=== PATIENT | female | born 1990 | race Caucasian/White ===

== ENCOUNTER 2016-07-18 18:41 | Emergency (ER) | payer OTHER ==
[~2016-07-18 18:41] MED LIST: BIRTH CONTROL PILL; PROZ10CA
[2016-07-18 20:12] LABS: BASO # 0.1 K/mm3 (0.0-0.2); BASO % 1.1 % (0.0-1.0); EOS # 0.8 K/mm3 (0.0-0.50); EOS % 8.6 % (0.0-3.0); LARGE UNSTAINED CELL # 0.2 K/mm3 (0.0-0.4); LARGE UNSTAINED CELL % 1.8 % (0.0-4.0); LYMPH # 3.8 K/mm3 (1.5-6.5); MEAN CORPUSCULAR HEMOGLOBIN 31.1 pg (27.0-33.0); MEAN CORPUSCULAR HGB CONC 34.8 g/dl (32.0-36.5); MEAN CORPUSCULAR VOLUME 89.2 fl (80.0-96.0); MONO # 0.5 K/mm3 (0.0-0.8); MONO % 5.3 % (0.0-5.0); NEUTROPHILS # 3.6 K/mm3 (1.8-7.7); NEUTROPHILS % 41.2 % (36.0-66.0); PLATELET COUNT, AUTOMATED 262 k/mm3 (150-450); WHITE BLOOD COUNT 8.8 K/mm3 (4.0-10.0)
[2016-07-18 20:28] LABS: ERYTHROCYTE SEDIMENTATION RATE 13 mm/hr (0-20)
[2016-07-18 21:04] LABS: ANION GAP 8 MEQ/L (8-16); BLOOD UREA NITROGEN 13 MG/DL (7-18); CALCIUM LEVEL 9.1 MG/DL (8.5-10.1); CARBON DIOXIDE LEVEL 27 MEQ/L (21-32); CHLORIDE LEVEL 109 MEQ/L (98-107); CREATININE FOR GFR 0.86 MG/DL (0.55-1.02); GLOMERULAR FILTRATION RATE > 60.0 (>60); GLUCOSE, FASTING 92 MG/DL (70-105); POTASSIUM SERUM 4.1 MEQ/L (3.5-5.1); SODIUM LEVEL 144 MEQ/L (136-145); T UPTAKE 34 % (30-39)
[2016-07-18] MEDS ORDERED: ISOVUE-370 76% 100ML VIAL (Q9967) As Ordered ONE (21:35)
--- NOTE | 2016-07-18 22:30 | REPUSA ---
CT of the soft tissues of the neck with contrast Clinical history: lung in the throat. Technique: Multiple axial CT images were obtained from the base of the skull to the upper thorax afte r administration of non-ionic intravenous contrast. Coronal and sagittal reconstructions were also ob tained. Findings: The visualized paranasal sinuses are clear. The pterygopalatine fossa, pterygoid plates and pterygoid muscles are unremarkable. The mucosa of the naso- and oropharynx appears unremarkable. The hypopharynx and larynx show no pathology. The visualized osseous structures are intact. The airway i s patent. No focal mass is appreciated. There is no evidence of lymphadenopathy. The thyroid gland ap pears unremarkable. The superficial soft tissues are unremarkable. Impression: Unremarkable CT examination of the soft tissues of the neck.
--- NOTE | 2016-07-18 23:17 | EDDOCDS ---
Nurse's Notes [facility] Name: Chantelle Bellamy Age: 25 yrs Sex: Female : 1990 Arrival Date: 07/18/2016 Time: 18:41 Bed I2 / M2 Private MD: NO PRIMARY PHYSICIAN, . Diagnosis: Pain in throat Presentation: 07/18 18:47 Presenting complaint: Patient states: feeling of pressure in throat worse hen she kpj swallows swelling present anterior aspect of throat since yesterday. 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 Adult Sepsis Screening: The patient does not have new or worsening altered mentation. Patient's respiratory rate is less than 22. Systolic blood pressure is greater than 100. Patient has a qSOFA score of 0- Negative Sepsis Screen. Suicide/Homicide risk assessment- the patient denies having any suicidal and/or homicidal ideations and does not present with any other emotional, behavioral or mental health complaints. Status: reserve status. Transition of care: patient was not received from another setting of care. 18:47 Acuity: SHI Level 3 [facility] 18:47 Method Of Arrival: Walkin/Carried/Asstd [facility] Triage Assessment: 18:53 General: Appears well nourished, well groomed, Behavior is appropriate for age, kpj pleasant. Pain: Location: throat Pain currently is 5 out of 10 on a pain scale. Pt Declines HIV testing. Neurological: Level of Consciousness is awake, alert, Oriented to person, place, time. EENT: Reports difficulty swallowing pain when swallowing Pain is 5 out of 10 on a pain scale. swelling anterior aspect of throat. Respiratory: Airway is patent Respiratory effort is even, unlabored, Respiratory pattern is regular, symmetrical. Derm: Skin is pink, warm & dry. TECHNOLOGIST DEVELOPMENT: 18:53 LMP 07/07/2016 [facility] Historical: - Allergies: No known drug Allergies; - Home Meds: 1. bcp patch patch change every week x 3 weeks then off x 1 week - PMHx: Kidney stones; - PSHx: kidney stone removal; - Social history: Smoking status: Patient uses tobacco products, light tobacco smoker. No barriers to communication noted, The patient speaks fluent Tajik. - Family history: Not pertinent. - : The pt / caregiver states he / she is not on anticoagulants. Home medication list is obtained from the patient. - Exposure Risk Screening:: None identified. Screenin:03 Screening information is obtained from the patient. Fall risk: No risks identified. ld5 Assistance ADL's: requires no assistance with activities of daily living. Abuse/DV Screen: The patient / caregiver reports he/she is: not in a situation that causes fear, pain or injury. Nutritional screening: No deficits noted. Advance Directives: Currently, there is no health care proxy. home support is adequate. Assessment: 20:03 General: Appears in no apparent distress, Behavior is cooperative, pleasant. Pain: ld5 Location: throat Aggravated by laying flat, swallowing. Neurological: Level of Consciousness is awake, alert. EENT: Reports pain when swallowing. Respiratory: Airway is patent Respiratory effort is even, unlabored. GI: Abdomen is non- distended. Derm: Skin is intact, Skin is dry, Skin is normal. 21:07 General: Pt sitting in bed. Awaiting CT scan. Will continue to monitor. ld5 21:43 General: Pt returned from CT. Tolerated well. No apparent distress. Will continue to ld5 monitor. 23:01 General: Pt declining strep. "I just want to go home." Provider made aware. ld5 23:10 Reassessment: Patient appears in no apparent distress at this time. Patient denies pain rw1 at this time. Vital Signs: 18:45 BP 146 / 80; Pulse 74; Resp 17; Temp 97.5(T); Pulse Ox 100% on R/A; Weight 67.13 kg lr2 (R); Height 5 ft. 9 in. (175.26 cm) (R); 23:10 BP 132 / 72; Pulse 70; Resp 16; Temp 97.6(O); Pulse Ox 98% on R/A; Pain 0/10; rw1 18:45 Body Mass Index 21.86 (67.13 kg, 175.26 cm) lr2 Vitals: 18:45 Log In Time: July 18, 2016 at 18:41. lr2 ED Course: 18:43 Patient visited by Georgina Keane. lr2 18:43 Patient moved to Waiting lr2 18:44 NO PRIMARY PHYSICIAN, . is Private Physician. lr2 18:44 Patient moved to Pre RCE lr2 18:51 Triage Initiated kpj 19:16 Patient moved to Triage 3 cz 19:19 Gor[facility]bolledo PA-C [facility]. dk1 19:19 Charlie White DO is Attending Physician. dk1 19:34 Patient visited by Goran Rebolledo PA-C. dk1 19:39 Patient name changed from Chantelle\\S\\M\\S\\Bellamy\\S\\ to Chantelle\\S\\Ashley\\S\\Bellamy. EDMS 19:40 [place] Payment Agreement was scanned into [employer] and attached to record. gb 19:43 Patient moved to I2 / M2 cz 20:03 The patient / caregiver is instructed regarding the plan of care and ED course. ld5 Accompanied by Family Member, Patient has correct armband on for positive identification. Placed in gown. Bed in low position. Call light in reach. 20:03 CRP Sent. ld5 20:03 ESR Sent. ld5 20:03 Thyroid Profile Sent. ld5 20:03 BMP Sent. ld5 20:03 CBC with Diff Sent. ld5 20:03 Inserted saline lock: 20 gauge in right antecubital area and blood collected. The ld5 patient tolerated the procedure well. Labs drawn. (by ED staff). Sent per order to lab. 20:05 Patient visited by Georgina Patten,ALAN. ld5 21:07 Patient visited by Georgina Patten,ALAN. ld5 21:44 Patient visited by Georgina Patten,ALAN. ld5 22:59 CT Neck With Contrast Returned. EDMS 23:01 Patient visited by Naif Augustin PCA. kb5 23:02 Patient visited by Georgina Patten,ALAN. ld5 23:04 Tomas Bass is Referral Physician. dk1 23:10 Discontinued IV lock intact, bleeding controlled, pressure dressing applied, No rw1 redness/swelling at site. No procedures done that require assistance. Administered Medications: 20:03 Drug: NS 0.9% 1000 ml [sodium chloride 0.9 % intravenous solution] Route: IV; Rate: ld5 bolus; Site: right antecubital; 21:44 Follow up: IV Status: Completed infusion; IV Intake: 1000ml ld5 23:15 Follow up: IV Status: Completed infusion rw1 Intake: :44 IV: 1000.00ml; Total: 1000.00ml. ld5 Order Results: Lab Order: CBC with Diff; SPEC'M 07/18/16 20:01 Test: WHITE BLOOD COUNT; Value: 8.8; Range: 4.0-10.0; Units: K/mm3; Status: F Test: RED BLOOD COUNT; Value: 4.36; Range: 4.00-5.40; Units: M/mm3; Status: F Test: HEMOGLOBIN; Value: 13.5; Range: 12.0-16.0; Units: g/dl; Status: F Test: HEMATOCRIT; Value: 38.9; Range: 36.0-47.0; Units: %; Status: F Test: MEAN CORPUSCULAR VOLUME; Value: 89.2; Range: 80.0-96.0; Units: fl; Status: F Test: MEAN CORPUSCULAR HEMOGLOBIN; Value: 31.1; Range: 27.0-33.0; Units: pg; Status: F Test: MEAN CORPUSCULAR HGB CONC; Value: 34.8; Range: 32.0-36.5; Units: g/dl; Status: F Test: RED CELL DISTRIBUTION WIDTH; Value: 12.0; Range: 11.5-14.5; Units: %; Status: F Test: PLATELET COUNT, AUTOMATED; Value: 262; Range: 150-450; Units: k/mm3; Status: F Test: NEUTROPHILS %; Value: 41.2; Range: 36.0-66.0; Units: %; Status: F Test: LYMPH %; Value: 42.0; Range: 24.0-44.0; Units: %; Status: F Test: MONO %; Value: 5.3; Range: 0.0-5.0; Abnormal: Above high normal; Units: %; Status: F Test: EOS %; Value: 8.6; Range: 0.0-3.0; Abnormal: Above high normal; Units: %; Status: F Test: BASO %; Value: 1.1; Range: 0.0-1.0; Abnormal: Above high normal; Units: %; Status: F Test: LARGE UNSTAINED CELL %; Value: 1.8; Range: 0.0-4.0; Units: %; Status: F Test: NEUTROPHILS #; Value: 3.6; Range: 1.8-7.7; Units: K/mm3; Status: F Test: LYMPH #; Value: 3.8; Range: 1.5-6.5; Units: K/mm3; Status: F Test: MONO #; Value: 0.5; Range: 0.0-0.8; Units: K/mm3; Status: F Test: EOS #; Value: 0.8; Range: 0.0-0.50; Abnormal: Above high normal; Units: K/mm3; Status: F Test: BASO #; Value: 0.1; Range: 0.0-0.2; Units: K/mm3; Status: F Test: LARGE UNSTAINED CELL #; Value: 0.2; Range: 0.0-0.4; Units: K/mm3; Status: F Lab Order: [facility]; SPEC'M 07/18/16 20:01 Test: GLUCOSE, FASTING; Value: 92; Range: 70-105; Units: MG/DL; Status: F Test: BLOOD UREA NITROGEN; Value: 13; Range: 7-18; Units: MG/DL; Status: F Test: CREATININE FOR GFR; Value: 0.86; Range: 0.55-1.02; Units: MG/DL; Status: F Test: GLOMERULAR FILTRATION RATE; Value: > 60.0; Range: >60; Status: F Test: SODIUM LEVEL; Value: 144; Range: 136-145; Units: MEQ/L; Status: F Test: POTASSIUM SERUM; Value: 4.1; Range: 3.5-5.1; Units: MEQ/L; Status: F Test: CHLORIDE LEVEL; Value: 109; Range: 98-107; Abnormal: Above high normal; Units: MEQ/L; Status: F Test: CARBON DIOXIDE LEVEL; Value: 27; Range: 21-32; Units: MEQ/L; Status: F Test: ANION GAP; Value: 8; Range: 8-16; Units: MEQ/L; Status: F Test: CALCIUM LEVEL; Value: 9.1; Range: 8.5-10.1; Units: MG/DL; Status: F Test Note: ; Units are mL/min/1.73 m2 Chronic Kidney Disease Staging per NKF: Stage I & II GFR >=60 Normal to Mildly Decreased Stage III GFR 30-59 Moderately Decreased Stage IV GFR 15-29 Severely Decreased Stage V GFR <15 Very Little GFR Left ESRD GFR <15 on [employer] Lab Order: Thyroid Profile; SPEC'M 07/18/16 20:01 Test: T UPTAKE; Value: 34; Range: 30-39; Units: %; Status: F Test: THYROXINE (T4); Value: 11.0; Range: 4.5-12.0; Units: UG/DL; Status: F Test: FREE THYROXINE INDEX; Value: 3.7; Range: 1.3-4.8; Units: %; Status: F Test: THYROID STIMULATING HORMONE; Value: 2.740; Range: 0.358-3.740; Units: uIU/ML; Status: F Lab Order: ESR; SPEC'M 07/18/16 20:01 Test: ERYTHROCYTE SEDIMENTATION RATE; Value: 13; Range: 0-20; Units: mm/hr; Status: F Lab Order: CRP; SPEC'M 07/18/16 20:01 Test: C REACTIVE PROTEIN QUANTITATIV; Value: 0.63; Range: 0.00-0.30; Abnormal: Above high normal; Units: MG/DL; Status: F Radiology Order: CT Neck With Contrast Test: CT Neck With Contrast REASON FOR EXAMINATION: patient feels lump in throat;Foreign Body; ; CT of the soft tissues of the neck with contrast; Clinical history: lung in the throat.; Technique: Multiple axial CT images were obtained from the base of the skull to the upper thorax afte; r administration of non-ionic intravenous contrast. Coronal and sagittal reconstructions were also ob; tained.; Findings: The visualized paranasal sinuses are clear. The pterygopalatine fossa, pterygoid plates and; pterygoid muscles are unremarkable. The mucosa of the naso- and oropharynx appears unremarkable. The; hypopharynx and larynx show no pathology. The visualized osseous structures are intact. The airway i; s patent. No focal mass is appreciated. There is no evidence of lymphadenopathy. The thyroid gland ap; pears unremarkable. The superficial soft tissues are unremarkable.; Impression: Unremarkable CT examination of the soft tissues of the neck.; ; Outcome: 23:04 Discharge ordered by Provider. dk1 23:16 Discharge Assessment: Patient awake, alert and oriented x 3. No cognitive and/or rw1 functional deficits noted. Patient verbalized understanding of disposition instructions. patient administered narcotics - no. The following High Risk Discharge criteria are identified: None. Discharged to home ambulatory, with family. Condition: stable. Discharge instructions given to patient, Instructed on discharge instructions, follow up and referral plans. Demonstrated understanding of instructions, Pt was receptive of discharge instructions/ teaching. CT Study completed. Property sent home with patient. 23:17 Patient left the ED. rw1 Signatures: Dispatcher [employer] EDMS Waleska King, RN RN Porter Vivar, RN RN cz Laura Young, Sha Reg Goran Menezes, PA-C PA-C dk1 Hans Lopez,CLERK TELEVISION PRODUCTION CLERK TELEVISION PRODUCTION rw1 Naif Augustin, CYRUS VENDOR MANAGER [email or web address] Georgina Patten,RN RN ld5 Georgina Keane lr2 MTDD
--- NOTE | 2016-07-18 23:17 | EDDOCDS ---
Physician Documentation [facility] Name: Chantelle Bellamy Age: 25 yrs Sex: Female : 1990 Arrival Date: 07/18/2016 Time: 18:41 Bed I2 / M2 Private MD: NO PRIMARY PHYSICIAN, . Disposition: 07/18/16 23:04 Discharged to Home/Self Care. Impression: Pain in throat. - Condition is Stable. - Discharge Instructions: [place] Water Gargle. - Medication Reconciliation, Local Pharmacy Hours form. - Follow up: Tomas Bass; When: 2 - 3 days; Reason: Recheck today's complaints, Continuance of care. Follow up: Emergency Department; When: As needed; Reason: Worsening of conditions. - Problem is new. - Symptoms are unchanged. Historical: - Allergies: No known drug Allergies; - Home Meds: 1. bcp patch patch change every week x 3 weeks then off x 1 week - PMHx: Kidney stones; - PSHx: kidney stone removal; - Social history: Smoking status: Patient uses tobacco products, light tobacco smoker. No barriers to communication noted, The patient speaks fluent Stateless. - Family history: Not pertinent. - : The pt / caregiver states he / she is not on anticoagulants. Home medication list is obtained from the patient. - Exposure Risk Screening:: None identified. PRODUCT SUPPORT REP: 07/18 18:53 LMP 07/07/2016 [facility] Vital Signs: 18:45 BP 146 / 80; Pulse 74; Resp 17; Temp 97.5(T); Pulse Ox 100% on R/A; Weight 67.13 kg / lr2 148 lbs (R); Height 5 ft. 9 in. (175.26 cm) (R); 23:10 BP 132 / 72; Pulse 70; Resp 16; Temp 97.6(O); Pulse Ox 98% on R/A; Pain 0/10; rw1 18:45 Body Mass Index 21.86 (67.13 kg, 175.26 cm) lr2 MDM: 19:34 Financial registration complete. gb 19:40 [facility] Payment Agreement was scanned into [employer] and attached to record. gb 19:41 IV Saline Lock ordered. dk1 19:41 UCG by Nursing ordered. dk1 19:42 NS 0.9% 1000 ml IV at bolus once ordered. dk1 19:43 CBC with Diff Ordered. EDMS 19:43 BMP Ordered. EDMS 19:43 Thyroid Profile Ordered. EDMS 19:43 ESR Ordered. EDMS 19:43 CRP Ordered. EDMS 19:43 CT Neck With Contrast Ordered. EDMS 21:10 CBC with Diff Reviewed. dk1 21:10 BMP Reviewed. dk1 21:10 CRP Reviewed. dk1 21:10 Thyroid Profile Reviewed. dk1 21:10 ESR Reviewed. dk1 Administered Medications: 20:03 Drug: NS 0.9% 1000 ml [sodium chloride 0.9 % intravenous solution] Route: IV; Rate: ld5 bolus; Site: right antecubital; 21:44 Follow up: IV Status: Completed infusion; IV Intake: 1000ml ld5 23:15 Follow up: IV Status: Completed infusion rw1 Signatures: Dispatcher [employer] Waleska Umana, RN RN Laura Chan, Sha Reg Goran Menezes, PAJaimeC PA-C dk1 Hans Lopez LPN COUPLING MACHINE OPERATOR rw1 Georgina Patten,RN RN ld5 The chart was reviewed and I authenticate all verbal orders and agree with the evaluation and treatment provided.Corrections: (The following items were deleted from the chart) 23:15 22:34 Strep Screen, Nursing ordered. dk1 rw1 Attachments: 19:40 [facility] gb MTDD
--- NOTE | 2016-07-21 00:17 | EDDOCDS ---
Nurse's Notes [facility] Name: Chantelle Bellamy Age: 25 yrs Sex: Female : 1990 Arrival Date: 07/18/2016 Time: 18:41 Bed I2 / M2 Private MD: NO PRIMARY PHYSICIAN, . Diagnosis: Pain in throat Presentation: 07/18 18:47 Presenting complaint: Patient states: feeling of pressure in throat worse hen she kpj swallows swelling present anterior aspect of throat since yesterday. 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 Adult Sepsis Screening: The patient does not have new or worsening altered mentation. Patient's respiratory rate is less than 22. Systolic blood pressure is greater than 100. Patient has a qSOFA score of 0- Negative Sepsis Screen. Suicide/Homicide risk assessment- the patient denies having any suicidal and/or homicidal ideations and does not present with any other emotional, behavioral or mental health complaints. Status: reserve status. Transition of care: patient was not received from another setting of care. 18:47 Acuity: SHI Level 3 [facility] 18:47 Method Of Arrival: Walkin/Carried/Asstd [facility] Triage Assessment: 18:53 General: Appears well nourished, well groomed, Behavior is appropriate for age, kpj pleasant. Pain: Location: throat Pain currently is 5 out of 10 on a pain scale. Pt Declines HIV testing. Neurological: Level of Consciousness is awake, alert, Oriented to person, place, time. EENT: Reports difficulty swallowing pain when swallowing Pain is 5 out of 10 on a pain scale. swelling anterior aspect of throat. Respiratory: Airway is patent Respiratory effort is even, unlabored, Respiratory pattern is regular, symmetrical. Derm: Skin is pink, warm & dry. 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 bcp patch patch change every week x 3 weeks then off x 1 week - PMHx: Kidney stones; - PSHx: kidney stone removal; - Social history: Smoking status: Patient uses tobacco products, light tobacco smoker. No barriers to communication noted, The patient speaks fluent Urdu. - Family history: Not pertinent. - : The pt / caregiver states he / she is not on anticoagulants. Home medication list is obtained from the patient. - Exposure Risk Screening:: None identified. Screenin:03 Screening information is obtained from the patient. Fall risk: No risks identified. ld5 Assistance ADL's: requires no assistance with activities of daily living. Abuse/DV Screen: The patient / caregiver reports he/she is: not in a situation that causes fear, pain or injury. Nutritional screening: No deficits noted. Advance Directives: Currently, there is no health care proxy. home support is adequate. Assessment: 20:03 General: Appears in no apparent distress, Behavior is cooperative, pleasant. Pain: ld5 Location: throat Aggravated by laying flat, swallowing. Neurological: Level of Consciousness is awake, alert. EENT: Reports pain when swallowing. Respiratory: Airway is patent Respiratory effort is even, unlabored. GI: Abdomen is non- distended. Derm: Skin is intact, Skin is dry, Skin is normal. 21:07 General: Pt sitting in bed. Awaiting CT scan. Will continue to monitor. ld5 21:43 General: Pt returned from CT. Tolerated well. No apparent distress. Will continue to ld5 monitor. 23:01 General: Pt declining strep. "I just want to go home." Provider made aware. ld5 23:10 Reassessment: Patient appears in no apparent distress at this time. Patient denies pain rw1 at this time. Vital Signs: 18:45 BP 146 / 80; Pulse 74; Resp 17; Temp 97.5(T); Pulse Ox 100% on R/A; Weight 67.13 kg lr2 (R); Height 5 ft. 9 in. (175.26 cm) (R); 23:10 BP 132 / 72; Pulse 70; Resp 16; Temp 97.6(O); Pulse Ox 98% on R/A; Pain 0/10; rw1 18:45 Body Mass Index 21.86 (67.13 kg, 175.26 cm) lr2 Vitals: 18:45 Log In Time: July 18, 2016 at 18:41. lr2 ED Course: 18:43 Patient visited by Georgina Keane. lr2 18:43 Patient moved to Waiting lr2 18:44 NO PRIMARY PHYSICIAN, . is Private Physician. lr2 18:44 Patient moved to Pre RCE lr2 18:51 Triage Initiated kpj 19:16 Patient moved to Triage 3 cz 19:19 [facility]led[facility]. dk1 19:19 Charlie White DO is Attending Physician. dk1 19:34 Patient visited by Goran Rebolledo PA-C. dk1 19:39 Patient name changed from Chantelle\\S\\M\\S\\Bellamy\\S\\ to Chantelle\\S\\Ashley\\S\\Bellamy. EDMS 19:40 [facility] Payment Agreement was scanned into [employer] and attached to record. gb 19:43 Patient moved to I2 / M2 cz 20:03 The patient / caregiver is instructed regarding the plan of care and ED course. ld5 Accompanied by Family Member, Patient has correct armband on for positive identification. Placed in gown. Bed in low position. Call light in reach. 20:03 CRP Sent. ld5 20:03 ESR Sent. ld5 20:03 Thyroid Profile Sent. ld5 20:03 BMP Sent. ld5 20:03 CBC with Diff Sent. ld5 20:03 Inserted saline lock: 20 gauge in right antecubital area and blood collected. The ld5 patient tolerated the procedure well. Labs drawn. (by ED staff). Sent per order to lab. 20:05 Patient visited by Georgina Patten,ALAN. ld5 21:07 Patient visited by Georgina Patten,ALAN. ld5 21:44 Patient visited by Georgina Patten,ALAN. ld5 22:59 CT Neck With Contrast Returned. EDMS 23:01 Patient visited by Naif Augustin PCA. kb5 23:02 Patient visited by Georgina Patten,ALAN. ld5 23:04 Tomas Bass is Referral Physician. dk1 23:10 Discontinued IV lock intact, bleeding controlled, pressure dressing applied, No rw1 redness/swelling at site. No procedures done that require assistance. 02 11:00 T-Sheet-- Draft Copy was scanned into [employer] and attached to record. gb 11:00 Radiology Report was scanned into [employer] and attached to record. gb Administered Medications: 07/18 20:03 Drug: NS 0.9% 1000 ml [sodium chloride 0.9 % intravenous solution] Route: IV; Rate: ld5 bolus; Site: right antecubital; 21:44 Follow up: IV Status: Completed infusion; IV Intake: 1000ml ld5 23:15 Follow up: IV Status: Completed infusion rw1 Intake: 21:44 IV: 1000.00ml; Total: 1000.00ml. ld5 Order Results: Lab Order: CBC with Diff; SPEC'M 07/18/16 20:01 Test: WHITE BLOOD COUNT; Value: 8.8; Range: 4.0-10.0; Units: K/mm3; Status: F Test: RED BLOOD COUNT; Value: 4.36; Range: 4.00-5.40; Units: M/mm3; Status: F Test: HEMOGLOBIN; Value: 13.5; Range: 12.0-16.0; Units: g/dl; Status: F Test: HEMATOCRIT; Value: 38.9; Range: 36.0-47.0; Units: %; Status: F Test: MEAN CORPUSCULAR VOLUME; Value: 89.2; Range: 80.0-96.0; Units: fl; Status: F Test: MEAN CORPUSCULAR HEMOGLOBIN; Value: 31.1; Range: 27.0-33.0; Units: pg; Status: F Test: MEAN CORPUSCULAR HGB CONC; Value: 34.8; Range: 32.0-36.5; Units: g/dl; Status: F Test: RED CELL DISTRIBUTION WIDTH; Value: 12.0; Range: 11.5-14.5; Units: %; Status: F Test: PLATELET COUNT, AUTOMATED; Value: 262; Range: 150-450; Units: k/mm3; Status: F Test: NEUTROPHILS %; Value: 41.2; Range: 36.0-66.0; Units: %; Status: F Test: LYMPH %; Value: 42.0; Range: 24.0-44.0; Units: %; Status: F Test: MONO %; Value: 5.3; Range: 0.0-5.0; Abnormal: Above high normal; Units: %; Status: F Test: EOS %; Value: 8.6; Range: 0.0-3.0; Abnormal: Above high normal; Units: %; Status: F Test: BASO %; Value: 1.1; Range: 0.0-1.0; Abnormal: Above high normal; Units: %; Status: F Test: LARGE UNSTAINED CELL %; Value: 1.8; Range: 0.0-4.0; Units: %; Status: F Test: NEUTROPHILS #; Value: 3.6; Range: 1.8-7.7; Units: K/mm3; Status: F Test: LYMPH #; Value: 3.8; Range: 1.5-6.5; Units: K/mm3; Status: F Test: MONO #; Value: 0.5; Range: 0.0-0.8; Units: K/mm3; Status: F Test: EOS #; Value: 0.8; Range: 0.0-0.50; Abnormal: Above high normal; Units: K/mm3; Status: F Test: BASO #; Value: 0.1; Range: 0.0-0.2; Units: K/mm3; Status: F Test: LARGE UNSTAINED CELL #; Value: 0.2; Range: 0.0-0.4; Units: K/mm3; Status: F Lab Order: [facility]; SPEC'M 07/18/16 20:01 Test: GLUCOSE, FASTING; Value: 92; Range: 70-105; Units: MG/DL; Status: F Test: BLOOD UREA NITROGEN; Value: 13; Range: 7-18; Units: MG/DL; Status: F Test: CREATININE FOR GFR; Value: 0.86; Range: 0.55-1.02; Units: MG/DL; Status: F Test: GLOMERULAR FILTRATION RATE; Value: > 60.0; Range: >60; Status: F Test: SODIUM LEVEL; Value: 144; Range: 136-145; Units: MEQ/L; Status: F Test: POTASSIUM SERUM; Value: 4.1; Range: 3.5-5.1; Units: MEQ/L; Status: F Test: CHLORIDE LEVEL; Value: 109; Range: 98-107; Abnormal: Above high normal; Units: MEQ/L; Status: F Test: CARBON DIOXIDE LEVEL; Value: 27; Range: 21-32; Units: MEQ/L; Status: F Test: ANION GAP; Value: 8; Range: 8-16; Units: MEQ/L; Status: F Test: CALCIUM LEVEL; Value: 9.1; Range: 8.5-10.1; Units: MG/DL; Status: F Test Note: ; Units are mL/min/1.73 m2 Chronic Kidney Disease Staging per NKF: Stage I & II GFR >=60 Normal to Mildly Decreased Stage III GFR 30-59 Moderately Decreased Stage IV GFR 15-29 Severely Decreased Stage V GFR <15 Very Little GFR Left ESRD GFR <15 on CEREAL CHEMIST Lab Order: Thyroid Profile; [facility]' 07/18/16 20: Test: T UPTAKE; Value: 34; Range: 30-39; Units: %; Status: F Test: THYROXINE (T4); Value: 11.0; Range: 4.5-12.0; Units: UG/DL; Status: F Test: FREE THYROXINE INDEX; Value: 3.7; Range: 1.3-4.8; Units: %; Status: F Test: THYROID STIMULATING HORMONE; Value: 2.740; Range: 0.358-3.740; Units: uIU/ML; Status: F Lab Order: ESR; [facility]' 07/18/16 20:01 Test: ERYTHROCYTE SEDIMENTATION RATE; Value: 13; Range: 0-20; Units: mm/hr; Status: F Lab Order: CRP; [facility] 07/18/16 20:01 Test: C REACTIVE PROTEIN QUANTITATIV; Value: 0.63; Range: 0.00-0.30; Abnormal: Above high normal; Units: MG/DL; Status: F Radiology Order: CT Neck With Contrast Test: CT Neck With Contrast REASON FOR EXAMINATION: patient feels lump in throat;Foreign Body; ; CT of the soft tissues of the neck with contrast; Clinical history: lung in the throat.; Technique: Multiple axial CT images were obtained from the base of the skull to the upper thorax afte; r administration of non-ionic intravenous contrast. Coronal and sagittal reconstructions were also ob; tained.; Findings: The visualized paranasal sinuses are clear. The pterygopalatine fossa, pterygoid plates and; pterygoid muscles are unremarkable. The mucosa of the naso- and oropharynx appears unremarkable. The; hypopharynx and larynx show no pathology. The visualized osseous structures are intact. The airway i; s patent. No focal mass is appreciated. There is no evidence of lymphadenopathy. The thyroid gland ap; pears unremarkable. The superficial soft tissues are unremarkable.; Impression: Unremarkable CT examination of the soft tissues of the neck.; ; Outcome: 23:04 Discharge ordered by Provider. dk1 23:16 Discharge Assessment: Patient awake, alert and oriented x 3. No cognitive and/or rw1 functional deficits noted. Patient verbalized understanding of disposition instructions. patient administered narcotics - no. The following High Risk Discharge criteria are identified: None. Discharged to home ambulatory, with family. Condition: stable. Discharge instructions given to patient, Instructed on discharge instructions, follow up and referral plans. Demonstrated understanding of instructions, Pt was receptive of discharge instructions/ teaching. CT Study completed. Property sent home with patient. 23:17 Patient left the ED. rw1 Signatures: Dispatcher [employer] EDMS Waleska King, RN RN Porter Vivar, RN RN Laura Martínez, Goran Leong, PA-C PA-C dk1 Hans Lopez,RETAIL MAINTENANCE TECHNICIAN RETAIL MAINTENANCE TECHNICIAN rw1 Naif Augustin, CYRUS BANK COMPLIANCE OFFICER [email or web address] Georgina Patten,RN RN ld5 Georgina Keane lr2 Chart Complete [facility]
--- NOTE | 2016-07-21 00:17 | EDDOCDS ---
Physician Documentation [facility] Name: Chantelle Bellamy Age: 25 yrs Sex: Female : 1990 Arrival Date: 07/18/2016 Time: 18:41 Bed I2 / M2 Private MD: NO PRIMARY PHYSICIAN, . Disposition: 07/18/16 23:04 Discharged to Home/Self Care. Impression: Pain in throat. - Condition is Stable. - Discharge Instructions: Salt Water Gargle. - Medication Reconciliation, Local Pharmacy Hours form. - Follow up: Tomas Bass; When: 2 - 3 days; Reason: Recheck today's complaints, Continuance of care. Follow up: Emergency Department; When: As needed; Reason: Worsening of conditions. - Problem is new. - Symptoms are unchanged. Historical: - Allergies: No known drug Allergies; - Home Meds: 1. bcp patch patch change every week x 3 weeks then off x 1 week - PMHx: Kidney stones; - PSHx: kidney stone removal; - Social history: Smoking status: Patient uses tobacco products, light tobacco smoker. No barriers to communication noted, The patient speaks fluent Mauritanian. - Family history: Not pertinent. - : The pt / caregiver states he / she is not on anticoagulants. Home medication list is obtained from the patient. - Exposure Risk Screening:: None identified. 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 9 in. (175.26 cm) (R); 23:10 BP 132 / 72; Pulse 70; Resp 16; Temp 97.6(O); Pulse Ox 98% on R/A; Pain 0/10; rw1 18:45 Body Mass Index 21.86 (67.13 kg, 175.26 cm) lr2 MDM: 19:34 Financial registration complete. gb 19:40 [facility] Payment Agreement was scanned into [employer] and attached to record. gb 19:41 IV Saline Lock ordered. dk1 19:41 UCG by Nursing ordered. dk1 19:42 NS 0.9% 1000 ml IV at bolus once ordered. dk1 19:43 CBC with Diff Ordered. EDMS 19:43 BMP Ordered. EDMS 19:43 Thyroid Profile Ordered. EDMS 19:43 ESR Ordered. EDMS 19:43 CRP Ordered. EDMS 19:43 CT Neck With Contrast Ordered. EDMS 21:10 CBC with Diff Reviewed. dk1 21:10 BMP Reviewed. dk1 21:10 CRP Reviewed. dk1 21:10 Thyroid Profile Reviewed. dk1 21:10 ESR Reviewed. dk1 07/19 11:00 T-Sheet-- Draft Copy was scanned into [employer] and attached to record. gb 11:00 Radiology Report was scanned into [employer] and attached to record. gb Administered Medications: 07/18 20:03 Drug: NS 0.9% 1000 ml [sodium chloride 0.9 % intravenous solution] Route: IV; Rate: ld5 bolus; Site: right antecubital; 21:44 Follow up: IV Status: Completed infusion; IV Intake: 1000ml ld5 23:15 Follow up: IV Status: Completed infusion rw1 Signatures: Dispatcher [employer] Waleska Umana, RN RN Laura Chan, Reg Reg Goran Menezes, PA-C PA-C dk1 Hans Lopez,GEAR CHANGER GEAR CHANGER rw1 Georgina Patten,RN RN ld5 The chart was reviewed and I authenticate all verbal orders and agree with the evaluation and treatment provided.Corrections: (The following items were deleted from the chart) 23:15 22:34 Strep Screen, Nursing ordered. dk1 rw1 Attachments: 19:40 [facility] [place] Agreement gb 07/19 11:00 T-Sheet-- Draft Copy gb Chart Complete MTDD
--- NOTE | 2016-07-21 00:17 | EDDOCDS ---
Physician Documentation [facility] Name: Chantelle Bellamy Age: 25 yrs Sex: Female : 1990 Arrival Date: 07/18/2016 Time: 18:41 Bed I2 / M2 Private MD: NO PRIMARY PHYSICIAN, . Disposition: 07/18/16 23:04 Discharged to Home/Self Care. Impression: Pain in throat. - Condition is Stable. - Discharge Instructions: Salt Water Gargle. - Medication Reconciliation, Local Pharmacy Hours form. - Follow up: Tomas Bass; When: 2 - 3 days; Reason: Recheck today's complaints, Continuance of care. Follow up: Emergency Department; When: As needed; Reason: Worsening of conditions. - Problem is new. - Symptoms are unchanged. Historical: - Allergies: No known drug Allergies; - Home Meds: 1. bcp patch patch change every week x 3 weeks then off x 1 week - PMHx: Kidney stones; - PSHx: kidney stone removal; - Social history: Smoking status: Patient uses tobacco products, light tobacco smoker. No barriers to communication noted, The patient speaks fluent Turkish. - Family history: Not pertinent. - : The pt / caregiver states he / she is not on anticoagulants. Home medication list is obtained from the patient. - Exposure Risk Screening:: None identified. 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 9 in. (175.26 cm) (R); 23:10 BP 132 / 72; Pulse 70; Resp 16; Temp 97.6(O); Pulse Ox 98% on R/A; Pain 0/10; rw1 18:45 Body Mass Index 21.86 (67.13 kg, 175.26 cm) lr2 MDM: 19:34 Financial registration complete. gb 19:40 [facility] Payment Agreement was scanned into [employer] and attached to record. gb 19:41 IV Saline Lock ordered. dk1 19:41 UCG by Nursing ordered. dk1 19:42 NS 0.9% 1000 ml IV at bolus once ordered. dk1 19:43 CBC with Diff Ordered. EDMS 19:43 BMP Ordered. EDMS 19:43 Thyroid Profile Ordered. EDMS 19:43 ESR Ordered. EDMS 19:43 CRP Ordered. EDMS 19:43 CT Neck With Contrast Ordered. EDMS 21:10 CBC with Diff Reviewed. dk1 21:10 BMP Reviewed. dk1 21:10 CRP Reviewed. dk1 21:10 Thyroid Profile Reviewed. dk1 21:10 ESR Reviewed. dk1 07/19 11:00 T-Sheet-- Draft Copy was scanned into [employer] and attached to record. gb 11:00 Radiology Report was scanned into [employer] and attached to record. gb Administered Medications: 07/18 20:03 Drug: NS 0.9% 1000 ml [sodium chloride 0.9 % intravenous solution] Route: IV; Rate: ld5 bolus; Site: right antecubital; 21:44 Follow up: IV Status: Completed infusion; IV Intake: 1000ml ld5 23:15 Follow up: IV Status: Completed infusion rw1 Signatures: Dispatcher [employer] Waleska Umana, RN RN Laura Chan, Reg Reg Goran Menezes, PA-C PA-C dk1 Hans Lopez,PERPETUAL INVENTORY CLERK PERPETUAL INVENTORY CLERK rw1 Georgina Patten,RN RN ld5 The chart was reviewed and I authenticate all verbal orders and agree with the evaluation and treatment provided.Corrections: (The following items were deleted from the chart) 23:15 22:34 Strep Screen, Nursing ordered. dk1 rw1 Attachments: 19:40 [facility] Payment Agreement gb 07/19 11:00 T-Sheet-- Draft Copy gb Chart Complete MTDD
== END 2016-07-18 23:17 | disposition home or self-care (01) ==
LOC: M ED 18:41
DX: R07.0 Pain in throat (principal); Z87.442 Personal history of urinary calculi; F17.200 Nicotine dependence, unspecified, uncomplicated; Z79.3 Long term (current) use of hormonal contraceptives
CPT/HCPCS: 36415; 70491; 80048; 84436; 84443; 84479; 85025; 85652; 86140; 96360; 96361; 99284; Q9967

== ENCOUNTER 2019-11-25 21:52 | Day surgery (SDC) | payer OTHER ==
[~2019-11-25] VITALS: Ht 167.6 cm; Wt 75.0 kg
[2019-11-25] MEDS ORDERED: NS 1,000 ML IV ONE (22:30)
[2019-11-25 22:34] LABS: BASO # 0.1 10^3/uL (0.0-0.2); BASO % 0.5 % (0.0-1.0); EOS # 0.1 10^3/uL (0.0-0.5); EOS % 0.6 % (0.0-3.0); HEMATOCRIT 37.3 % (36.0-47.0); HEMOGLOBIN 13.3 g/dl (12.0-15.5); LYMPH # 2.8 10^3/uL (1.5-5.0); LYMPH % 14.7 % (24.0-44.0); MEAN CORPUSCULAR HEMOGLOBIN 31.8 pg (27.0-33.0); MEAN CORPUSCULAR HGB CONC 35.7 g/dl (32.0-36.5); MEAN CORPUSCULAR VOLUME 89.2 fl (80.0-96.0); MONO # 1.3 10^3/uL (0.0-0.8); MONO % 6.9 % (0.0-5.0); NEUTROPHILS # 14.9 10^3/uL (1.5-8.5); NEUTROPHILS % 76.9 % (36.0-66.0); PLATELET COUNT, AUTOMATED 340 10^3/uL (150-450); RED BLOOD COUNT 4.18 10^6/uL (4.00-5.40); WHITE BLOOD COUNT 19.4 10^3/uL (4.0-10.0)
[2019-11-25] MEDS ORDERED: MORPHINE 4 MG/ML 1ML VIAL/SYRINGE (J2270) IV ONE (22:45)
[2019-11-25 23:07] LABS: ALBUMIN 4.4 GM/DL (3.2-5.2); ALT/SGPT 26 U/L (12-78); BILIRUBIN,DIRECT 0.2 MG/DL (0.0-0.2); BILIRUBIN,TOTAL 0.6 MG/DL (0.2-1.0); CK-MB VALUE MASS < 1.0 NG/ML (<3.6); CPK CREATINE PHOSPHOKINASE 87 U/L (26-192); LIPASE 82 U/L (73-393); MB/CK RELATIVE INDEX 1.15 (< OR =4); TROPONIN I < 0.02 NG/ML (< 0.10)
[2019-11-25 23:11] LABS: HCG, SERUM QUALITATIVE NEGATIVE (NEGATIVE)
[2019-11-25 23:17] LABS: FREE THYROXINE INDEX 3.4 % (1.3-4.8); T UPTAKE 35 % (30-39); THYROXINE (T4) 9.8 UG/DL (4.5-12.0)
[2019-11-25 23:43] LABS: APPEARANCE, URINE CLEAR (CLEAR); BACTERIA, URINE AUTO NEGATIVE (NEGATIVE); BILIRUBIN, URINE AUTO NEGATIVE (NEGATIVE); BLOOD, URINE BLOOD NEGATIVE (NEGATIVE); COLOR, URINE STRAW (YELLOW); GLUCOSE, URINE (UA) AUTO NEGATIVE (NEGATIVE); KETONE, URINE AUTO TRACE mg/dL (NEGATIVE); LEUKOCYTE ESTERASE, URINE AUTO NEGATIVE (NEGATIVE); NITRITE, URINE AUTO NEGATIVE (NEGATIVE); PROTEIN, URINE AUTO NEGATIVE (NEGATIVE); RBC, URINE AUTO 0 /HPF (0-3); SPECIFIC GRAVITY URINE AUTO 1.003 (1.002-1.035); SQUAMOUS EPITHELIAL CELL UR AU 2 /HPF (0-6); UROBILINOGEN, URINE AUTO 0.2 mg/dL (0.0-2.0); WBC, URINE AUTO 0 /HPF (0-3)
[2019-11-26] VITALS (10 sets, daily range): BP systolic 110–138; BP diastolic 56–91
[2019-11-26] MEDS ORDERED: KETOROLAC 30 MG/ML 1ML VIAL IV ONE
[2019-11-26] MEDS ORDERED: ISOVUE-370 76% 100ML VIAL As Ordered ONE (00:07)
--- NOTE | 2019-11-26 00:38 | REPVR ---
PROCEDURE INFORMATION: Exam: CT Abdomen And Pelvis With Contrast Exam date and time: 11/25/2019 12:26 AM Age: 29 years old Clinical indication: Abdominal pain; Localized; Right lower quadrant (rlq); Additional info: Rlq pain TECHNIQUE: Imaging protocol: Computed tomography of the abdomen and pelvis with intravenous contrast. Radiation optimization: All CT scans at this facility use at least one of these dose optimization techniques: automated exposure control; mA and/or kV adjustment per patient size (includes targeted exams where dose is matched to clinical indication); or iterative reconstruction. Contrast material: ISOVUE 370; Contrast volume: 100 ml; Contrast route: IV; COMPARISON: No relevant prior studies available. FINDINGS: Liver: Normal. No mass. Gallbladder and bile ducts: Normal. No calcified stones. No ductal dilation. Pancreas: Normal. No ductal dilation. Spleen: Normal. No splenomegaly. Adrenals: Normal. No mass. Kidneys and ureters: Normal. No hydronephrosis. Stomach and bowel: Unremarkable. No obstruction. No mucosal thickening. Appendix: There is question of partial visualization of a normal appendix. Intraperitoneal space: Moderate peritoneal ascites with a Hounsfield measurement of 30 adjacent to the liver, 34 in the right pericolic gutter and 37 in the pelvis. Heterogeneous material filling the cul-de-sac which is thought to reflect organized hematoma or clot. Vasculature: Unremarkable. No abdominal aortic aneurysm. Lymph nodes: Unremarkable. No enlarged lymph nodes. Bladder: Trace air in the urinary bladder. Reproductive: Complex structure in the right adnexa with a low-attenuation area measuring approximately 2.7 x 2.5 x 2.3 cm with irregular peripheral enhancement and possible active bleeding during acquisition of the scan. The right gonadal vein complex extends to the anterior aspect of this complex mass and appears to be of ovarian origin. Bones/joints: Unremarkable. No acute fracture. Soft tissues: Unremarkable. IMPRESSION: 1. Complex low-attenuation mass of the right ovary with irregular peripheral enhancement and possible active bleeding during acquisition of the scan. This is surrounded by what appears to reflect organized clot or hematoma in the right adnexa and filling the cul-de-sac. There is moderate free fluid which is of high density consistent with high protein content and is thought to reflect hemoperitoneum or serosanguineous fluid. Findings may reflect a hemorrhagic right ovarian cyst. Ectopic may be a consideration. 2. Trace gas in the urinary bladder which may reflect recent catheterization. Electronically signed by: Tomas Brewer On 11/26/2019 00:37:54 AM
[2019-11-26] MEDS ORDERED: HYDROMORPHONE HCL 0.5 MG/ 0.5 ML SYRINGE (J1170 PER 1) IV ONE (01:00)
[2019-11-26] MEDS ORDERED: HYDROMORPHONE HCL 0.5 MG/ 0.5 ML SYRINGE (J1170 PER 1) IV PRN (01:00)
[2019-11-26 02:33] LABS: HEMATOCRIT 28.5 % (36.0-47.0)
[2019-11-26 02:35] LABS: HEMOGLOBIN 10.3 g/dl (12.0-15.5)
[2019-11-26] MEDS ORDERED: BUPIVACAINE HCL 0.25% 30ML VIAL As Ordered ONE (02:47)
--- NOTE | 2019-11-26 03:09 | REPVR ---
PROCEDURE INFORMATION: Exam: US Pelvis Complete, Transabdominal and US Pelvis, Transvaginal Exam date and time: 11/26/2019 2:41 AM Age: 29 years old Clinical indication: Pelvic pain; Additional info: R ovarian hemorrhage TECHNIQUE: Imaging protocol: Real-time transabdominal and transvaginal pelvic ultrasound (complete) with image documentation. Transvaginal imaging was used for better evaluation of the endometrium and adnexa. COMPARISON: CT ABD/PEL W/IV CONTRAST ONLY 11/26/2019 12:11 AM FINDINGS: Uterus/cervix: The uterus measures 5.8 cm in its cephalocaudad dimension and 2.7 x 4.1 cm in its AP and lateral dimensions transabdominal. The uterus measures 5.7 cm in its cephalocaudad dimension and 3.5 x 4.1 cm in its AP and lateral dimensions transvaginal. The endometrium measures 9 mm transabdominal and 8 mm transvaginal. Right adnexa: The right ovary measures 5.8 x 6.5 x 5.4 cm with a complex cyst measuring 4.2 x 4.8 x 3.5 cm. There is right ovarian blood flow. Left adnexa: The left ovary measures 2.6 x 3.3 x 2.5 cm and demonstrates pulsatile blood flow. Free fluid: Complex free fluid is noted. Bladder: The urinary bladder appears normal. IMPRESSION: 1. Complex right ovarian cyst consistent with hemorrhagic cyst measuring 4.2 x 4.8 x 3.5 cm. 2. Moderate complex free fluid consistent with hemoperitoneum. Electronically signed by: Tomas Brewer On 11/26/2019 03:09:05 AM
[2019-11-26] MEDS ORDERED: ceFAZolin 2 GM/D5W 50 ML IV BAG (J0690 PER 500MG) As Ordered ONE (03:45)
[2019-11-26] MEDS ORDERED: propofoL 200 MG/20 ML VIAL As Ordered ONE (03:55)
[2019-11-26] MEDS ORDERED: LIDOCAINE 2% 100MG/5ML SDV (FOR ANES.) As Ordered ONE (03:55)
[2019-11-26] MEDS ORDERED: MIDAZOLAM INJ 2MG/2ML VIAL (J2250 PER 1MG) As Ordered ONE (03:55)
[2019-11-26] MEDS ORDERED: dexameTHASONE 4 MG/ML 1ML VIAL (J1100 PER 1MG) As Ordered ONE (03:55)
[2019-11-26] MEDS ORDERED: fentaNYL 250 MCG/5 ML INJECTION (J3010) As Ordered ONE (03:55)
[2019-11-26] MEDS ORDERED: ROCURONIUM BROMIDE 50 MG/5 ML VIAL As Ordered ONE (03:55)
[2019-11-26] MEDS ORDERED: ONDANSETRON 4MG/2ML VIAL As Ordered ONE (03:55)
[2019-11-26] MEDS ORDERED: SUCCINYLCHOLINE 100 MG/5 ML SYRINGE (J0330) As Ordered ONE (03:55)
[2019-11-26] MEDS ORDERED: SUGAMMADEX SODIUM 500 MG/5 ML VIAL (BRIDION) As Ordered ONE (04:12)
[2019-11-26] MEDS ORDERED: oxyCODONE 5MG TAB As Ordered ONE (05:33)
[2019-11-26] MEDS ORDERED: fentaNYL 100 MCG/2 ML INJECTION (J3010) As Ordered ONE (05:33)
[2019-11-26] MEDS: fentaNYL 100 MCG/2 ML INJECTION (J3010) IV PRN ×2 (05:39→05:45)
[2019-11-26] MEDS ORDERED: LR 1,000 ML IV SCH (05:45)
[2019-11-26] MEDS ORDERED: ONDANSETRON 4MG/2ML VIAL IV PRN (05:45)
[2019-11-26] MEDS: oxyCODONE 5MG TAB PO PRN ×2 (05:54→06:31)
[2019-11-26] MEDS ORDERED: PERCOCET 5MG/325MG TAB PO PRN (06:00)
[2019-11-26] MEDS: LR 1,000 ML IV SCH ×3 (06:55→20:33)
[2019-11-26] MEDS: SIMETHICONE 80 MG CHEW TAB PO SCH ×4 (07:02→23:43)
[2019-11-26 09:56] LABS: HEMATOCRIT 26.6 % (36.0-47.0); HEMOGLOBIN 9.4 g/dl (12.0-15.5); MEAN CORPUSCULAR HEMOGLOBIN 32.2 pg (27.0-33.0); MEAN CORPUSCULAR HGB CONC 35.3 g/dl (32.0-36.5); MEAN CORPUSCULAR VOLUME 91.1 fl (80.0-96.0); PLATELET COUNT, AUTOMATED 231 10^3/uL (150-450); RED BLOOD COUNT 2.92 10^6/uL (4.00-5.40); WHITE BLOOD COUNT 12.5 10^3/uL (4.0-10.0)
--- NOTE | 2019-11-26 11:45 | REP ---
Single view chest: 11/25/2019. Indication: Chest pain. Comparison: 09/06/2013. Findings: The lungs are clear. There is no pleural effusion or pneumothorax. The cardiac silhouette is unremarkable. Impression: Clear lungs. Electronically Signed by Theo Butts DO 11/26/2019 11:36 A
[2019-11-26] MEDS: NICOTINE 14 MG/24 HR TRANSDERMAL TD SCH (12:53)
[2019-11-26] MEDS: KETOROLAC 30 MG/ML 1ML VIAL IV PRN (12:54)
[2019-11-26] MEDS: PERCOCET 5MG/325MG TAB PO PRN ×2 (15:32→20:32)
--- NOTE | 2019-11-26 16:09 | ECGEPIP ---
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
[2019-11-27] MEDS: PERCOCET 5MG/325MG TAB PO PRN ×5 (00:36→20:45)
[2019-11-27 02:00] VITALS: BP 102/54
[2019-11-27 06:00] VITALS: BP 112/70
[2019-11-27] MEDS: SIMETHICONE 80 MG CHEW TAB PO SCH ×4 (06:05→23:43)
[2019-11-27] MEDS: LR 1,000 ML IV SCH (06:06)
[2019-11-27 06:25] LABS: HEMOGLOBIN 8.4 g/dl (12.0-15.5)
[2019-11-27] MEDS: DOCUSATE SODIUM 100 MG CAP PO SCH ×2 (08:31→20:43)
[2019-11-27] MEDS: NICOTINE 14 MG/24 HR TRANSDERMAL TD SCH (08:33)
[2019-11-27] MEDS ORDERED: MORPHINE 2 MG/ML 1ML VIAL (J2270) IV ONE (09:30)
--- NOTE | 2019-11-27 11:25 | IPNPDOC ---
Text Note Date of Service The patient was seen on 11/27/19. NOTE No acute events overnight. She is still having the same pain in the right side. No improvement with ambulation. VSSAF NAD abd - soft, TTP appropriate, dressings c/d/i labs - below A) 29y/o female with bleeding from an unknown intraabdominal source POD#1 s/p Lap abd washout P)npo IVF ambulate CTA abd and pelvis today STAT Juan J Murillo DO VS,Jluise, I+O VS, Fishbone, I+O Laboratory Tests 11/27/19 05:49 Vital Signs Date Time Temp Pulse Resp B/P (MAP) Pulse Ox O2 Delivery O2 Flow Rate FiO2 11/27/19 10:10 16 Room Air 11/27/19 06:34 96 11/27/19 06:00 97.2 85 112/70 (84) I&O- Last 24 Hours up to 6 AM 11/27/19 06:00 Intake Total 840 ml Output Total 2700 ml Balance -1860 ml DELBERT MURILLO DO Nov 27, 2019 11:25
[2019-11-27] MEDS ORDERED: ISOVUE-370 76% 100ML VIAL As Ordered ONE (11:40)
[2019-11-27 12:01] LABS: HEMATOCRIT 24.8 % (36.0-47.0); HEMOGLOBIN 8.6 g/dl (12.0-15.5)
[2019-11-27] MEDS: KETOROLAC 30 MG/ML 1ML VIAL IV PRN (13:21)
[2019-11-27 14:00] VITALS: BP 115/61
--- NOTE | 2019-11-27 14:04 | REP ---
REASON: Abdominal bleed. COMPARISON: Multiple, the latest yesterday. Curvilinear densities are seen in the lung bases consistent with subsegmental atelectatic changes. There are no pleural or pericardial effusions. Contrast today 100 mL Isovue 370. The precontrast enhanced portion of the exam shows hepatic and splenic densities to be within normal limits. Dense material is seen in the dependent portion of the gallbladder consistent with vicarious excretion of previously injected radiographic contrast material. There are no nephroliths or choleliths. There is free intraperitoneal air, however, the patient is status post exploratory laparoscopy performed less than 24 hours ago. This will explain the free intraperitoneal air. The liver, gallbladder, spleen, pancreas, adrenal glands, and kidneys are within normal limits. The abdominal aorta and para-aortic regions are within normal limits. The intra-abdominal and intrapelvic bowel loops and their mesenteries are within normal limits. There is a complex fluid collection in the pelvis, however, the amount of fluid is less than when compared to 11/26/2019 at 12:14 a.m. bone window technique throughout the examination shows the osseous structures to be within normal limits. IMPRESSION: There is a small complex fluid collection in the pelvis but much less when compared to the prior exam as described above. The intra-abdominal free fluid seen on the prior exam has resolved. There is free intraperitoneal air, however, the patient is status post exploratory laparoscopy less then 24 hours ago which will explain the free air. There is no evidence of a bowel abnormality. Other findings as described above. Electronically Signed by Varun Dillon DO 11/27/2019 04:12 P
--- NOTE | 2019-11-27 21:41 | CR ---
DATE OF CONSULTATION: 11/26/2019 REASON FOR CONSULTATION: Gastrointestinal (GI) bleed. This was an intraoperative consult for the morning of 11/26/2019. HISTORY OF PRESENT ILLNESS: The patient is a 29-year-old female, a patient of Dr. Alcaraz'uriah. She presented to the emergency room on 11/25/2019, late in the evening, complaining of pelvic pain, dizziness. She presented tachycardiac and hypotensive, was found to have a large volume of fluid inside of her abdomen, as well as a possible ruptured hemorrhagic cyst on her right ovary. She was brought to the operating room with Dr. Alcaraz. Intraoperatively, he found a large amount of blood, but he aspirated it all out, did not find any significant source for it, and he felt that she was continuing to bleed while he was there, so I was called to come in during the procedure. Once inside the abdomen, I examined the upper and lower quadrants, found a large volume of fluid. Once that was aspirated out, it did not appear to be continuing to reaccumulate. After a thorough evaluation and evaluation of her CT intraoperatively, we did not find any other source for bleeding. She was then awakened from anesthesia and brought to recovery room. Once she was awakened in the recovery room, I discussed our findings with her, along with Dr. Alcaraz. She denies any history of colon diseases or problems. No nausea or vomiting. No problems with bowel movements or blood in her stool. No family history of colon diseases, and she has never had any symptoms like this in the past. PAST MEDICAL HISTORY: Kidney stones. PAST SURGICAL HISTORY: Cystoscopy, tonsillectomy, and wisdom teeth removal. SOCIAL HISTORY: Drinks socially. Denies drug or alcohol abuse. FAMILY HISTORY: Noncontributory. REVIEW OF SYSTEMS: Pertinent positives and negatives as stated in the history of the present illness. PHYSICAL EXAMINATION: General: Alert and oriented times three. No acute distress. Vital signs: Temperature was 97.5, pulse 95, respirations 18, blood pressure 138/91, pulse oximetry 100% on room air. HEENT: Pupils equally round and react to light and accommodation. Heart: S1, S2, regular rate and rhythm. Lungs: Clear to auscultation bilaterally. Abdomen: Soft, slight tenderness to palpation in the right upper and lower quadrant. Localized guarding, no rigidity. Extremities: No clubbing, cyanosis or edema. LABORATORY DATA: White count was 19.4, hemoglobin 30.3. IMAGING STUDIES: CT abdomen and pelvis showed a complex mass in the right ovary with irregular peripheral enhancing and possibly active bleeding surrounded by what appeared to be an organized clot. There was free fluid and signs of hemoperitoneum. ASSESSMENT/PLAN: The patient again is a 29-year-old female with intraperitoneal bleeding secondary to ruptured hemorrhagic cyst versus another unknown source. At the end of surgery, bleeding had all appeared to be contained. There was no visible bleeding noted and no specific location for cause. Recommendation is to continue to monitor hemoglobin and hematocrit, possibly check a CTA if she shows signs of continuing to bleed to help further localize where it is coming from prior to attempting any other exploration.
[2019-11-27 22:00] VITALS: BP 108/68
[2019-11-28 02:00] VITALS: BP 100/45
[2019-11-28 06:00] VITALS: BP 116/65
[2019-11-28] MEDS: PERCOCET 5MG/325MG TAB PO PRN (06:16)
[2019-11-28] MEDS: SIMETHICONE 80 MG CHEW TAB PO SCH (06:17)
[2019-11-28 06:49] LABS: HEMATOCRIT 24.9 % (36.0-47.0); HEMOGLOBIN 8.8 g/dl (12.0-15.5)
[2019-11-28] MEDS ORDERED: NORC1TAB7 PO (08:11)
--- NOTE | 2019-11-28 23:31 | RO ---
DATE OF PROCEDURE: 11/26/2019 Chantelle is a 29-year-old female who presented to the emergency room with severe abdominal pain. Upon evaluation in the emergency room, she was found to have moderate to large hemoperitoneum with a questionable ruptured hemorrhagic right ovarian cyst. After CT scan and an ultrasound and given that her hemoglobin was dropping, the decision was made to take the patient to the operating room for diagnostic laparoscopy, possible removal of a right hemorrhagic cyst and possible oophorectomy. PREOPERATIVE DIAGNOSES: 1. Ruptured right ovarian hemorrhagic cyst on CT and ultrasound. 2. Acute abdominal pain. POSTOPERATIVE DIAGNOSES: 1. Ruptured right ovarian hemorrhagic cyst on CT and ultrasound. No evidence of a ruptured ovarian cyst noted. Large amount of hemoperitoneum was found on entry in the abdomen, approximately 1000 mL. 2. Acute abdominal pain. 3. Questionable gastrointestinal (GI) bleed, either mesenteric or retroperitoneal bleed. An intraoperative consult was obtained from general surgery, Dr. Murillo, and he will dictate his portion of the surgery. However, no direct cause of the bleed was identified. The patient will be followed by a CT angiogram and repeat blood count. PROCEDURES: 1. Diagnostic laparoscopy. 2. Evacuation of hemoperitoneum. 3. Intraoperative consult from Dr. Murillo. SURGEON: Dr. Sean Alcaraz TOOL SPECIALIST: ANESTHESIA: General. COMPLICATIONS: None. ESTIMATED BLOOD LOSS: Hemoperitoneum 1000 mL. SPECIMENS SENT TO THE LAB: None. DESCRIPTION OF PROCEDURE: After obtaining informed consent, the patient was taken to the operating room where general anesthetic was found to be adequate. She was then draped and prepped in the usual sterile fashion in the dorsal lithotomy position. At this point, a Cox catheter was placed in the bladder for drainage. We then turned our attention to the abdomen where a 5 mm incision was made using the Veress needle. The abdomen was insufflated with CO2 gas to approximately 3.5 liters. We then inserted an Xcel trocar along with the laparoscope under direct visualization. Upon entering the abdominal cavity, a large amount of hemoperitoneum was noted. We then placed a 5 mm right lateral port. The patient was then placed in steep Trendelenburg. The hemoperitoneum was evacuated. The pelvis as well as bilateral adnexa were identified. Both ovaries appeared to be within normal limits. There was one small area on the right ovary that appeared to be hemorrhagic; however, there was no obvious bleeding or indication of a prior bleed from that area. The pelvis was copiously irrigated with normal saline and suctioned out. Clear fluid noted. No further bleeding noted in the pelvis. At this point, the patient was placed in reverse Trendelenburg. The entire abdomen and pelvis was inspected. The appendix appeared to be within normal limits. However, on the right upper quadrant of the abdomen, there was a small area on the peritoneum that appeared to have a lot areas of inflammation with active bleeding coming out of that segment, as well as the mesenteric area. This area was copiously irrigated with normal saline several times and each time, pooling was noted at this point. Given the source of the bleeding and where it was located, the decision was made to call an intraoperative consult with general surgery. Dr. Murillo came in and scrubbed in and assessed the patient. We looked thoroughly to the find the source of bleeding, and no obvious source of bleeding was found. Towards the end of the surgery, there was no gross pooling in those areas anymore. It is believed that that area might have stopped bleeding on its own. However, the patient will be monitored postop and consider further testing if bleeding resumes. The entire abdomen and pelvis was copiously irrigated with normal saline and suctioned out. All instruments removed. At this point, the laparoscopic ports were closed using Dermabond, 0.25% Marcaine was placed for postoperative pain. The patient tolerated the procedure well. She was then transferred to the recovery room in stable condition. Please note that Dr. Murillo will dictate his intraoperative consult. We were not able to find a direct source of the bleed, there was no obvious gynecologic (PALM GATHERER) or gastrointestinal (GI) source of the bleeding, questionable mesenteric or retroperitoneal bleed is suspected. Dr. Murillo will follow the patient and consider a CT angiogram. In the immediate postop, will follow serial hemoglobin and hematocrit with this patient. Possibility of need for colonoscopy or return to the operating room (OR) also discussed. KARIN
--- NOTE | 2019-11-29 14:06 | DSES ---
DATE OF ADMISSION: 11/26/2019 DATE OF DISCHARGE: 11/28/2019 ADMISSION DIAGNOSIS: Hemorrhagic cyst that had ruptured, DISCHARGE DIAGNOSIS: Intraperitoneal bleeding from unspecified source. HISTORY/HOSPITAL COURSE: The patient is a 29-year-old female who presented to the emergency room with sudden onset of pelvic pain radiating into the right side of her belly and up into the right shoulder that started late the evening on the . She came into emergency room and was found to have a large amount of fluid inside of her abdomen and likely hemorrhagic cyst with active bleeding in the right ovary. She was brought to operating room with Dr. Alcaraz emergently. He found a large volume of blood inside of the abdomen, but no definitive cyst was identified. He called me for evaluation intraoperatively. We washed out the entire abdomen and did not see any further bleeding and closed her up and sent her back to her room. Postoperatively, her hemoglobin continued to drop for the next 12 hours, this was likely all just dilutional as she never ended up requiring any transfusions. On the , she was still having significant pain on the right side and her hemoglobin was still dropping, so I ordered CTA after discussion with the interventional radiologist. The CTA came back showing that most of the fluid was gone other than a small pocket in the pelvis, but no signs of any active bleeding from anywhere. Repeat hemoglobin/hematocrit (H/H) later that day on the and into the morning of the were continuing to go up. Her pain is resolving. She is tolerating a regular diet and ambulating in the halls without any difficulty. Plan is discharge her home this morning. I will send her home with pain meds to last her a couple of days. I explained her no lifting more 20 pounds for 2 weeks. She can shower. No baths for 5 days. All of her questions are answered. She will swing by my office when she leaves to pick remover a note to be out of work until the . I also asked her to followup with either myself, Dr. Alcaraz, or both, in 2 weeks. All of her questions are answered. She will call me with any problems.
== END 2019-11-28 08:54 | disposition home or self-care (01) ==
LOC: M ED 21:52 → EEVIPCON 21:52 → M SDC 21:53 → M MSPAV 11-26 06:36 → M SDC 11-26 06:36 → M MSPAV 11-28 08:54 → M SDC 11-28 08:54
PROVIDERS: ATTEND Surgery
DX: K66.1 Hemoperitoneum (principal); N83.291 Other ovarian cyst, right side; F17.218 Nicotine dependence, cigarettes, with other nicotine-induced disorders; Z79.899 Other long term (current) drug therapy
CPT/HCPCS: 36415; 49322; 71045; 74177; 74178; 76830; 76856; 80047; 80076; 81001; 81241; 82330; 82550; 82553; 82947; 83690; 84132; 84295; 84436; 84443; 84479; 84484; 84702; 84703; 85014; 85018; 85025; 85027; 86850; 86900; 86901; 87040; 87486; 87581; 87633; 87798; 93005; 93041; 93976; 94760; 96361; 96374; 96375; 96376; 99285; G0378; J0330; J0690; J1100; J1170; J1885; J2250; J2270; J2405; J3010; Q9967

== ENCOUNTER → 2020-05-17 | Outpatient (REF) | payer OTHER ==
[~2020-05-17] MED LIST changes: +NORC1TAB7 PO
[2020-05-17 17:35] LABS: INFLUENZA A AMPLIFICATION NEGATIVE (NEGATIVE); INFLUENZA B AMPLIFICATION NEGATIVE (NEGATIVE)
== END ==
LOC: M LAB REF 16:14
PROVIDERS: ATTEND Physician Assistant Medical
DX: J11.1 Influenza due to unidentified influenza virus with other respiratory manifestations (principal)

== ENCOUNTER → 2021-01-07 | Outpatient (REF) | LOC: M EMP 09:27 | PROVIDERS: ATTEND Family Medicine | DX: Z20.822 Contact with and (suspected) exposure to COVID-19 (principal) ==

== ENCOUNTER → 2021-03-25 | Outpatient (REF) | LOC: M EMP 11:24 | PROVIDERS: ATTEND Family Medicine | DX: Z11.52 Encounter for screening for COVID-19 (principal) ==

== ENCOUNTER → 2021-04-29 | Outpatient (REF) | LOC: M EMP 09:40 | PROVIDERS: ATTEND Family Medicine | DX: Z11.52 Encounter for screening for COVID-19 (principal) ==

== ENCOUNTER → 2021-05-01 | Outpatient (REF) | LOC: M LABSMTC 10:49 | PROVIDERS: ATTEND Family Medicine | DX: Z20.822 Contact with and (suspected) exposure to COVID-19 (principal) ==

== ENCOUNTER → 2021-05-05 | Outpatient (CLI) | payer OTHER, BC ==
--- NOTE | 2021-05-05 15:08 | REP ---
INDICATION: SEVERE LOWER ABD PAIN COMPARISON: None. TECHNIQUE: Transabdominal pelvic ultrasound followed by transvaginal examination for better evaluation of the endometrium and adnexa with color Doppler evaluation of the ovaries. FINDINGS: Bladder is unremarkable and measures 10.9 x 13.8 x 7.7 cm. Normal anteverted uterus measures 6.4 x 3.8 x 5.0 cm. The endometrial complex measures 10.4 mm thickness. Bilateral ovaries are normal in vascularity without evidence for torsion. Right ovary measures 4.7 x 2.9 x 4.0 cm and includes 3.1 x 2.1 x 2.7 cm hemorrhagic physiologic cyst; R I = 0.43. Left ovary measures 4.0 x 2.2 x 3.0 cm; R I = 0.53. No pelvic fluid or adnexal mass lesion. IMPRESSION: Hemorrhagic right ovarian physiologic cyst. Otherwise normal pelvic ultrasound. <Electronically signed by Cristian Phillips > 05/05/21 0134
== END ==
LOC: M RAD 13:54
PROVIDERS: ATTEND Emergency Medicine
DX: N83.201 Unspecified ovarian cyst, right side (principal)

== ENCOUNTER → 2021-08-15 | Outpatient (REF) | LOC: M LABSMTC 11:08 | PROVIDERS: ATTEND Family Medicine | DX: Z20.822 Contact with and (suspected) exposure to COVID-19 (principal) ==

== ENCOUNTER → 2021-08-28 | Outpatient (REF) ==
[2021-08-28 13:15] LABS: RSV AMPLIFICATION NEGATIVE (NEGATIVE)
== END ==
LOC: M LABSMTC 10:22
PROVIDERS: ATTEND Family Medicine
DX: Z20.822 Contact with and (suspected) exposure to COVID-19 (principal)

== ENCOUNTER → 2021-10-20 | Outpatient (REF) | LOC: M LABSMTC 10:26 | PROVIDERS: ATTEND Family Medicine | DX: Z11.52 Encounter for screening for COVID-19 (principal); Z20.822 Contact with and (suspected) exposure to COVID-19 ==

== ENCOUNTER → 2022-06-11 | Outpatient (REF) ==
[2022-06-11 13:16] LABS: RSV AMPLIFICATION NEGATIVE (NEGATIVE)
== END ==
LOC: M LABSMTC 10:28
PROVIDERS: ATTEND Family Medicine
DX: Z20.818 Contact with and (suspected) exposure to other bacterial communicable diseases (principal)

== ENCOUNTER 2022-07-01 16:33 | Emergency (ER) | payer BC, OTHER ==
[~2022-07-01] VITALS: Ht 165.1 cm; Wt 84.1 kg
[2022-07-01 16:34] VITALS: BP 142/75
[2022-07-01 17:41] LABS: BASO # 0.1 10^3/uL (0.0-0.2); BASO % 0.8 % (0.0-1.0); EOS # 0.5 10^3/uL (0.0-0.5); EOS % 4.7 % (0.0-3.0); HEMATOCRIT 38.7 % (36.0-47.0); HEMOGLOBIN 13.7 g/dl (12.0-15.5); LYMPH # 3.5 10^3/uL (1.5-5.0); LYMPH % 36.8 % (24.0-44.0); MEAN CORPUSCULAR HEMOGLOBIN 31.2 pg (27.0-33.0); MEAN CORPUSCULAR HGB CONC 35.4 g/dl (32.0-36.5); MEAN CORPUSCULAR VOLUME 88.2 fl (80.0-96.0); MONO # 0.7 10^3/uL (0.0-0.8); MONO % 7.7 % (2.0-8.0); NEUTROPHILS # 4.8 10^3/uL (1.5-8.5); NEUTROPHILS % 49.8 % (36.0-66.0); PLATELET COUNT, AUTOMATED 330 10^3/uL (150-450); RED BLOOD COUNT 4.39 10^6/uL (4.00-5.40); WHITE BLOOD COUNT 9.5 10^3/uL (4.0-10.0)
[2022-07-01] MEDS ORDERED: NS 1,000 ML IV ONE (17:50)
[2022-07-01] MEDS ORDERED: MORPHINE 4 MG/ML 1ML VIAL IV ONE (17:50)
[2022-07-01] MEDS ORDERED: METOCLOPRAMIDE INJ 10MG/2ML VIAL IV ONE (17:50)
[2022-07-01 18:05] LABS: LIPASE 35 U/L (12-53)
[2022-07-01 18:07] LABS: ALBUMIN 4.4 G/DL (3.2-5.2); ALKALINE PHOSPHATASE 84 U/L (46-116); ALT/SGPT 54 U/L (7.0-40); AST/SGOT 38 U/L (<34); BILIRUBIN,DIRECT 0.2 MG/DL (<0.4); BILIRUBIN,TOTAL 0.6 MG/DL (0.3-1.2); BLOOD UREA NITROGEN 12 MG/DL (9-23); CALCIUM LEVEL 9.5 MG/DL (8.5-10.1); CARBON DIOXIDE LEVEL 24 MMOL/L (20-31); CHLORIDE LEVEL 103 MMOL/L (98-107); CREATININE FOR GFR 0.72 MG/DL (0.55-1.30); GLOMERULAR FILTRATION RATE > 60.0 (>60); GLUCOSE, FASTING 98 MG/DL (60-100); HCG, SERUM QUANTITATIVE < 2.6 MIU/ML (<4.2); POTASSIUM SERUM 4.1 MMOL/L (3.5-5.1); SODIUM LEVEL 136 MMOL/L (136-145); TOTAL PROTEIN 7.5 G/DL (5.7-8.2)
[2022-07-01 18:13] LABS: MONO SCRN NEGATIVE (NEGATIVE)
[2022-07-01] MEDS ORDERED: ISOVUE-370 76% 100ML VIAL As Ordered ONE (18:16)
[2022-07-01] MEDS ORDERED: SIMETHICONE 80MG CHEW TAB PO ONE (20:30)
[2022-07-03 14:08] LABS: EBV AB TO NUCLEAR ANTIGEN 57.5 U/mL (0.0-17.9); EBV VIRAL CAPSID AG IgG >600.0 U/mL (0.0-17.9); EBV VIRAL CAPSID AG IgM <36.0 U/mL (0.0-35.9)
== END 2022-07-01 21:37 | disposition home or self-care (01) ==
LOC: M ED 17:57
DX: K59.00 Constipation, unspecified (principal); K76.0 Fatty (change of) liver, not elsewhere classified; Z87.442 Personal history of urinary calculi; Z87.440 Personal history of urinary (tract) infections; Z91.89 Other specified personal risk factors, not elsewhere classified
CPT/HCPCS: 71101; 74177; 80047; 80048; 80076; 83690; 84702; 85025; 86308; 86664; 86665; 87428; 96374; 96375; 99282; Q9967

== ENCOUNTER → 2023-05-11 | Outpatient (REF) ==
[2023-05-11 11:01] LABS: RSV AMPLIFICATION NEGATIVE (NEGATIVE)
== END ==
LOC: M EMP 09:16
PROVIDERS: ATTEND Family Medicine
DX: Z11.52 Encounter for screening for COVID-19 (principal)

== ENCOUNTER → 2023-07-19 | Outpatient (REF) | LOC: M EMP 09:42 | PROVIDERS: ATTEND Family Medicine | DX: Z53.9 Procedure and treatment not carried out, unspecified reason (principal) ==

== ENCOUNTER → 2023-09-20 | Outpatient (REF) ==
[2023-09-20 11:19] LABS: RSV AMPLIFICATION NEGATIVE (NEGATIVE)
== END ==
LOC: M EMP 08:00
PROVIDERS: ATTEND Family Medicine
DX: Z01.89 Encounter for other specified special examinations (principal)

== ENCOUNTER → 2024-01-10 | Outpatient (REF) | LOC: M EMP 08:44 | PROVIDERS: ATTEND Family Medicine | DX: Z01.89 Encounter for other specified special examinations (principal) ==

== ENCOUNTER → 2024-08-23 | Outpatient (REF) | LOC: M EMP 10:00 | PROVIDERS: ATTEND Family Medicine | DX: R09.89 Other specified symptoms and signs involving the circulatory and respiratory systems (principal) ==

== ENCOUNTER → 2024-12-19 | Outpatient (CLI) | payer OTHER ==
[~2024-12-19] MED LIST changes: +PERC5TAB12 PO
== END ==
LOC: M SOG 07:16
PROVIDERS: ATTEND Physician Assistant
DX: S82.65XA Nondisplaced fracture of lateral malleolus of left fibula, initial encounter for closed fracture (principal); M19.072 Primary osteoarthritis, left ankle and foot

== ENCOUNTER → 2025-03-13 | Outpatient (CLI) | payer OTHER | LOC: M SOG 11:01 | PROVIDERS: ATTEND Physician Assistant | DX: M25.551 Pain in right hip (principal) ==

== ENCOUNTER → 2025-05-14 | Outpatient (CLI) | payer OTHER | LOC: M RAD 11:20 | PROVIDERS: ATTEND Registered Nurse | DX: R05.9 Cough, unspecified (principal); J20.9 Acute bronchitis, unspecified ==